=== PATIENT | male | born 2000 | race American Indian/Alaskan Native ===

== ENCOUNTER 2022-08-17 14:45 | Inpatient (IN) | payer BC, SELFPAY ==
[2022-08-17 15:05] VITALS: BP 134/88; PULSE 85; RESP 16; TEMP 36.7; O2SAT 97; BMI 25.7
[2022-08-17 15:35] LABS: Appearance Urine Clear; Color Urine Yellow; Glucose Urine UA Negative (Negative); Leukocyte Esterase Urine Negative (Negative); Nitrite Urine Negative (Negative); PH 6.5 (5.0-9.0); Specific Gravity - Urine >= 1.030 (1.005-1.025); Urine Blood Negative (Negative); Urine Ketones Trace mg/dL (Negative); Urine Protein Trace mg/dL (Neg-Trace)
[2022-08-17 15:44] LABS: MANUAL DIFF FLAG NO
[2022-08-17 15:44] LABS: COVID-19 Test Negative (Negative); IDNOW Serial# 08D9AD1C
[2022-08-17 15:47] LABS: Basophils Percent Auto 0.4 % (0-2); Eosinophils Absolute Auto 0.1 X10*3/uL (0.0-0.4); Eosinophils Percent Auto 1.3 % (0-4); Hematocrit 43.6 % (42.0-52.0); Hemoglobin 15.2 g/dl (14.0-18.0); Imm Gran Abs Auto 0.05 X10*3/uL (0.00-0.03); Imm Gran Pct Auto 0.5 % (0.0-0.4); Lymphocytes Absolute Auto 2.1 X10*3/uL (1.2-4.9); Lymphocytes Percent Auto 19.8 % (20-40); Mean Corpuscular HGB Conc 34.9 g/dl (31.0-36.0); Mean Corpuscular Hemoglobin 28.8 pg (27.0-33.0); Mean Corpuscular Volume 82.6 fL (80.0-98.0); Mean Platelet Volume 9.4 fL (9.4-12.4); Monocytes Absolute Auto 0.7 X10*3/uL (0.1-1.2); Monocytes Percent Auto 6.6 % (2-11); Neutrophils Absolute Auto 7.5 x10*3/uL (2.0-8.3); Neutrophils Percent Auto 71.4 % (45-73); Platelet Count 413 X10*3/uL (160-400); Red Blood Count 5.28 X10*6/uL (4.60-5.80); Red Cell Distribution Width 12.1 % (11.0-16.0); White Blood Count 10.4 X10*3/uL (4.8-10.8)
[2022-08-17 15:52] LABS: Amphetamine Screen Urine POSITIVE (Not Detect); Barbiturates, Urine Not Detected (Not Detect); Benzodiazepines Screen Urine Not Detected (Not Detect); Cannabinoid Screen Urine POSITIVE (Not Detect); Cocaine Screen Urine Not Detected (Not Detect); Fentanyl, urine Not Detected (Not Detect); Opiate Screen Urine Not Detected (Not Detect); Phencyclidine Screen Urine Not Detected (Not Detect)
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
[2022-08-17 16:20] LABS: Alanine Aminotransferase 13 U/L (0-40); Albumin Level 4.4 g/dL (3.5-5.0); Alkaline Phosphatase 111 U/L (39-117); Anion Gap 13 (12-20); Aspartate Amino Transferase 15 U/L (5-37); Bilirubin Total 0.4 mg/dL (0.0-1.0); Blood Urea Nitrogen 10 mg/dL (9-16); Calcium 9.8 mg/dL (8.4-10.2); Carbon Dioxide 24 mmol/L (22-29); Chloride 104 mmol/L (96-108); Creatinine Clr Calc Pharmacy 126.5; Estimated Glomerular Filt Rate > 60; Ethanol < 10 mg/dL; Glucose Random 99 mg/dL (60-115); Potassium 4.7 mmol/L (3.3-5.1); Sodium 136 mmol/L (135-145); Total Protein 7.4 g/dL (6.5-8.0)
[2022-08-17 16:46] LABS: Acetaminophen LAB < 17 mcg/mL (<30); Salicylate < 5.0 mg/dL (15-30)
--- NOTE | 2022-08-17 17:23 | PC.NURSE ---
Care team clinician in to bedside to eval patient. Med rec obtained from pt.
[2022-08-17] MEDS: estradioL 0.5 MG TABLET 2 MG PO (21:24)
[2022-08-17] MEDS: buPROPion HCL 75 MG TABLET PO (21:25)
[2022-08-17] MEDS: proGESTerone, Micronized 100 MG CAPSULE PO (21:25)
[2022-08-17] MEDS: LORazepam 1 MG TABLET 2 MG PO (22:18)
--- NOTE | 2022-08-18 05:50 | PC.NURSE ---
Patient slept through the night, patient engaged well with care team, disposition is section 12 inpatient bed search, patient was not happy with disposition, tearful, made multiple phone calls/increased restlessness/provider notified Ativan 2 mg PO administered at 2218 with + effect, no distress observed/reported, VSS, will continue to monitor.
[2022-08-18 06:06] VITALS: BP 96/56; PULSE 95; RESP 18; TEMP 36.2; O2SAT 98
[2022-08-18] MEDS: estradioL 0.5 MG TABLET 2 MG PO ×2 (10:16→20:28)
[2022-08-18] MEDS: buPROPion HCL 75 MG TABLET 150 MG PO (10:17)
[2022-08-18] MEDS: Spironolactone 25 MG TABLET 200 MG PO (10:18)
--- NOTE | 2022-08-18 11:49 | PC.NURSE ---
pt has been friendly and polite w nad, calm demeanor, medicated as ordered, spoke w therapist Juan Miguel Bullard who spoke w raymond DING and expressed that he did not have the same concerns that he had last night and that he thinks discharge may be a better plan, Juan Miguel was connected to the CARE team and they will re eval in the next few hours, pt aware
--- NOTE | 2022-08-18 16:01 | PC.NURSE ---
report received from TIMUR Hernández Pt appearing anxious, pacing around pod area. Pt reports wanting to go home, care team spoke with patient regarding the need to stay and possibly seek out bedsearch. Pt disagrees with plan and would like a psychiatric consult, Dr. Lozano aware and care team is working on plan for psych consult. Pt currently on the phone with their parents
--- NOTE | 2022-08-18 16:12 | PC.NURSE ---
this RN spoke with pts parents on the phone who verbalized concern about lack of a safety plan in place . This RN educated pts parents with patients permission about the general safety plan for all patients in the pod and how if the patient is being discharged or admitted that may change the plan. Parents requested to speak with CARE team clinician regarding patients case and plan of care. Joseline from Care team is currently on the phone with the patients parents
[2022-08-18] MEDS: LORazepam 1 MG TABLET 2 MG PO (17:31)
--- NOTE | 2022-08-18 17:31 | PC.NURSE ---
pt reporting increased anxiety, requesting ativan. aware, verbal order for ativan 2mg, administered per JUL
--- NOTE | 2022-08-18 19:02 | PC.NURSE ---
patient sleeping at this time, respirations even and unlabored, skin pwd, no apparent distress at this time
[2022-08-18 20:05] VITALS: BP 134/78; PULSE 89; RESP 20; TEMP 36.5; O2SAT 96
[2022-08-18] MEDS: proGESTerone, Micronized 100 MG CAPSULE PO (20:28)
[2022-08-18] MEDS: buPROPion HCL 75 MG TABLET PO (20:28)
[2022-08-18 22:00] VITALS: BP 124/89; PULSE 71; RESP 17; TEMP 36.2; O2SAT 97
[2022-08-18] MEDS: LORazepam 1 MG TABLET PO (22:56)
--- NOTE | 2022-08-18 22:57 | PC.NURSE ---
pt showered and took nighttime ativan, now resting comfortably on bed at this time
--- NOTE | 2022-08-19 01:04 | PC.NURSE ---
patient sleeping at this time, respirations even and unlabored, skin pwd, no apparent distress. Continue plan of care for inpatient bedsearch
[2022-08-19 06:10] VITALS: BP 114/65; PULSE 102; TEMP 36; O2SAT 99
[2022-08-19] MEDS: buPROPion HCL 75 MG TABLET 150 MG PO (10:16)
[2022-08-19] MEDS: Spironolactone 25 MG TABLET 200 MG PO (10:16)
[2022-08-19] MEDS: estradioL 0.5 MG TABLET 2 MG PO ×2 (10:16→21:31)
--- NOTE | 2022-08-19 15:26 | MHC.CARE ---
Per [facility], patient's insurance is /[facility] policy #: [id number]
[2022-08-19 16:00] VITALS: BP 116/53; PULSE 89; TEMP 36.3
--- NOTE | 2022-08-19 18:16 | MHC.CARE ---
CARE Team called and got auth for the pt. last covered day is 08/22/22. Auth number is [id number]. Chaya Robledo is the person CARE Team spoke with. Breanna Guo is to call Chaya Robledo at [phone] for an update on the LCD.
[2022-08-19] MEDS: buPROPion HCL 75 MG TABLET PO (21:30)
[2022-08-19] MEDS: proGESTerone, Micronized 100 MG CAPSULE PO (21:31)
[2022-08-19] MEDS: traZODone HCL 50 MG TABLET PO (21:31)
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
[2022-08-20 06:00] VITALS: BP 119/76; PULSE 86; RESP 16; TEMP 37; O2SAT 98
--- NOTE | 2022-08-20 09:00 | ECG_ITS ---
Test Reason : cp Blood Pressure : / mmHG Vent. Rate : 093 BPM Atrial Rate : 093 BPM P-R Int : 146 ms QRS Dur : 088 ms QT Int : 344 ms P-R-T Axes : 074 050 062 degrees QTc Int : 427 ms Sinus rhythm with Baseline wander Otherwise normal ECG No previous ECGs available Referred By: Esther Ashley Electronically Signed By:KYLE SWEET MD
[2022-08-20 09:13] LABS: Estimated Average Glucose 108 mg/dL; Hemoglobin A1c % 5.4 %
[2022-08-20] MEDS: buPROPion HCL 75 MG TABLET 150 MG PO (09:15)
[2022-08-20] MEDS: estradioL 0.5 MG TABLET 2 MG PO ×2 (09:15→20:08)
[2022-08-20] MEDS: Spironolactone 25 MG TABLET 200 MG PO (09:17)
[2022-08-20 09:41] LABS: Cholesterol 168 mg/dL; HDL Cholesterol 63 mg/dL; LDL Cholesterol Calculated 84 mg/dl; Magnesium 2.2 mg/dL (1.6-2.6); Triglycerides 108 mg/dL
[2022-08-20 10:12] LABS: Folate 11.1 ng/mL (> or = 4.0); Free T4 (Free Thyroxine) 0.99 ng/dL (0.71-1.85); Thyroid Stimulating Hormone 1.74 uIU/mL (0.32-4.0); Vitamin B12 446 pg/mL (200-900)
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
[2022-08-20 16:10] VITALS: BP 117/58; PULSE 87; TEMP 36.1
[2022-08-20] MEDS: traZODone HCL 50 MG TABLET PO ×2 (20:06→22:58)
[2022-08-20] MEDS: proGESTerone, Micronized 100 MG CAPSULE PO (20:08)
[2022-08-20] MEDS: buPROPion HCL 75 MG TABLET PO (20:08)
[2022-08-21] MEDS: Spironolactone 25 MG TABLET 200 MG PO (08:45)
[2022-08-21] MEDS: estradioL 0.5 MG TABLET 2 MG PO ×2 (08:45→20:22)
[2022-08-21] MEDS: buPROPion HCL 75 MG TABLET 150 MG PO (08:45)
[2022-08-21 09:22] VITALS: BP 138/57; PULSE 84; RESP 18; TEMP 36.7; O2SAT 99
--- NOTE | 2022-08-21 15:09 | P.PNPSI_ITS ---
Subjective Subjective Date of Service: 08/21/22 Reason For Visit: PTSD SI Subjective Notes: Conditional Voluntary and 3 Day Healthcare Proxy: No Guardianship: No Medical Problems Affecting Mental Status: No Interim History: More settled today, however remains apprehensive in milieu. Discharge planned for 08/22. Pt to return to parents home for the weekend and then return to classes next week. Denies safety issues, no SI, HI. Appears engaged and with spontaneous smiling, good interactions with team and peers. Medication Compliance: Yes Side effects from medications: No Attending Groups: Intermittent Review of Systems Acute medical concerns: No Medical Review of Systems: unchanged Mental Status Exam Mental Status Exam Patient Appearance: Appropriate Patient Orientation: Person, Place, Time and Situation Level of Consciousness: Alert Patient Behavior: Talkative, Cooperative and Good Eye Contact Mood Description: Appropriate Affect Description: Appropriate and Flat Patient Cognition Impaired: No Ability to Follow Directions: Good Speech Pattern: Spontaneous Speech Memory Description: Intact Hallucinations: None Delusions: Not Present Perceptual Disturbances: Depersonalization and Derealization Thought Process: Goal Oriented Thought Content: positive for Suicidal Ideation (denies) Depressive Symptoms: Thoughts of /Suicide (denies) Abnormal Motor Activity Signs and Symptoms: Restlessness Judgement: Good Diagnostics Vital Signs (24Hr): Vital Signs - 24 hr 08/20/22 16:10 08/21/22 09:22 Temperature 97.0 F 98.0 F Pulse Rate 87 84 Respiratory Rate 18 Blood Pressure 117/58 L 138/57 L Pulse Oximetry 99 Oxygen Delivery Method Room Air BMI result Body Mass Index 25.7 Labs 08/17/22 15:40 08/17/22 15:40 Labs: Laboratory Results - last 48 hr 08/20/22 08/20/22 08:20 08:20 Estimat Average Glucose 108 Hemoglobin A1c % 5.4 Magnesium 2.2 Triglycerides 108 Cholesterol 168 LDL Cholesterol, Calc 84 HDL Cholesterol 63 Vitamin B12 446 Folate 11.1 TSH 1.74 Free T4 0.99 Medications Medications Current Medications Acetaminophen (Acetaminophen 325 Mg Tablet) 650 mg PO Q6H PRN PRN Reason: Headache/Pain Mild Scale (1-3) Al Hydroxide/Mg Hydroxide (Magnesium Hydrox/Alum Hydrox 30 Ml Oral.Susp) 30 ml PO Q6H PRN PRN Reason: Heartburn/Nausea Bupropion HCl (Bupropion Hcl 75 Mg Tablet) 75 mg PO BEDTIME FRANKIE Last Admin: 08/20/22 20:08 Dose: 75 mg Bupropion HCl (Bupropion Hcl 75 Mg Tablet) 150 mg PO DAILY FRANKIE Last Admin: 08/21/22 08:45 Dose: 150 mg Estradiol (Estradiol 0.5 Mg Tablet) 2 mg PO BID FRANKIE Last Admin: 08/21/22 08:45 Dose: 2 mg Hydroxyzine HCl (Hydroxyzine Hcl 25 Mg Tablet) 25 mg PO Q6H PRN PRN Reason: Anxiety Magnesium Hydroxide (Milk Of Magnesia 30 Ml Oral.Susp) 30 ml PO DAILY PRN PRN Reason: Constipation Progesterone (Progesterone, Micronized 100 Mg Capsule) 100 mg PO BEDTIME FRANKIE Last Admin: 08/20/22 20:08 Dose: 100 mg Spironolactone (Spironolactone 25 Mg Tablet) 200 mg PO DAILY [facility]; Protocol Last Admin: 08/21/22 08:45 Dose: 200 mg Trazodone HCl (Trazodone Hcl 50 Mg Tablet) 50 mg PO BEDTIME MRX1 PRN PRN Reason: Insomnia Last Admin: 08/20/22 22:58 Dose: 50 mg Allergies Allergies Allergy/AdvReac Type Severity Reaction Status Date / Time No Known Allergies Allergy Verified 08/17/22 15:14 Assessment & Plan Assessment & Plan (1) Post traumatic stress disorder: Status: Acute Code(s): F43.10 - Post-traumatic stress disorder, unspecified Plan 22 yo male to female, naomi at [facility] [employer] [facility] [employer], history of trauma with recent multifactorial triggering and resulting SI. Pt reports symptoms have resolved. Therapist is on paternity leave and pt has not made contact with coverage prior to admission. Therapist has connected with pt during crisis and admission process and believes pt to be on track. Plan: Observe in milieu Collateral contact Continue current medication regime Discharge planning 08/21/22- Discharge 08/22/22 to return to out pt team, coursework and family. Informed Consent: understands Reason for contiued inpatient stay Substantial Risk for: rapid decompensation Time Spent With Patient Time: Total time managing care of this patient today ____ minutes.
[2022-08-21 18:00] VITALS: BP 128/71; PULSE 81; RESP 20; TEMP 36.6; O2SAT 99
[2022-08-21] MEDS: hydrOXYzine HCL 25 MG TABLET PO (18:08)
[2022-08-21] MEDS: buPROPion HCL 75 MG TABLET PO (20:21)
[2022-08-21] MEDS: traZODone HCL 50 MG TABLET PO (20:23)
[2022-08-21] MEDS: proGESTerone, Micronized 100 MG CAPSULE PO (20:23)
[2022-08-22 08:30] VITALS: BP 107/61; PULSE 91; RESP 18; TEMP 36.3; O2SAT 99
[2022-08-22] MEDS: buPROPion HCL 75 MG TABLET 150 MG PO (08:57)
[2022-08-22] MEDS: estradioL 0.5 MG TABLET 2 MG PO (08:57)
[2022-08-22] MEDS: Spironolactone 25 MG TABLET 200 MG PO (08:57)
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
== END 2022-08-22 11:06 | disposition home or self-care (01) | DRG 755 ==
LOC: HO.ED 08-19 12:39 → HO.PM5 08-19 13:56
PROVIDERS: Admitting Provider Clinical Nurse Specialist Psychiatric/Mental Health, Adult; Emergency Provider Emergency Medicine; Visit Provider Clinical Nurse Specialist Psychiatric/Mental Health, Adult
DX: F43.10 Post-traumatic stress disorder, unspecified (principal); R45.851 Suicidal ideations; F17.210 Nicotine dependence, cigarettes, uncomplicated; Z71.6 Tobacco abuse counseling; Z20.822 Contact with and (suspected) exposure to COVID-19; F64.0 Transsexualism; Z79.899 Other long term (current) drug therapy
CPT/HCPCS: 36415; 80053; 80061; 80143; 80179; 80307; 81003; 82077; 82607; 82746; 83036; 83735; 84439; 84443; 85025; 87635; 93005; 99285; S9485